=== PATIENT | male | born 1950 | race Caucasian/White ===

== ENCOUNTER 2021-05-29 09:15 | Outpatient (CLI) | payer MEDICARE ==
[~2021-05-29] VITALS: Ht 160 cm; Wt 71.7 kg
[2021-05-29 09:35] VITALS: BP 143/83; PULSE 75; TEMP 96.3
[2021-05-29] MEDS ORDERED: BYSTOLIC5 MG PO (10:10)
[2021-05-29] MEDS ORDERED: CELEXA40 MG PO (10:10)
== END 2021-05-29 10:20 | disposition home or self-care (01) ==
LOC: EUO 09:15
DX: R33.9 Retention of urine, unspecified (principal)

== ENCOUNTER → 2021-07-30 | Outpatient (CLI) | payer MEDICARE ==
[~2021-07-30] MED LIST: BYSTOLIC5 MG PO; CELEXA40 MG PO
== END ==
LOC: COL.RAD 07:27
DX: I71.4 Abdominal aortic aneurysm, without rupture (principal); R31.0 Gross hematuria
CPT/HCPCS: Q9967

== ENCOUNTER 2021-08-14 10:08 | Day surgery (SDC) | payer MEDICARE ==
[2021-08-14] VITALS (7 sets, daily range): BP systolic 128–138; BP diastolic 62–93; PULSE 65–79; TEMP 97.4–97.8
[~2021-08-14] VITALS: Ht 162.6 cm; Wt 69.6 kg
[2021-08-14] MEDS ORDERED: LIPITOR 10MG10 MG PO (11:26)
[2021-08-14] MEDS ORDERED: FLOMAX 0.40.4 MG/CAP PO (11:27)
[2021-08-14 11:37] LABS: CALCIUM 9.4 mg/dL (8.4-10.2); POTASSIUM 4.6 mmol/L (3.5-4.5)
--- NOTE | 2021-08-14 13:55 | NUR ---
Patient returns to room 5 per cart from PACU accompanied by Geovanna SOLIS and is awake and alert. Temp 97.5 and room air sats 100%. Spouse in room. Denies pain and nausea. States has the urge to void and assisted up to the bathroom. Gait steady with two person assist. Had voided in PACU prior to arrival 100ml. Has been incontinent of moderate amount of urine. Patient has bowel movement and returns to room. Drinking water.
--- NOTE | 2021-08-14 14:10 | NUR ---
Drinking orange juice. States has constant urge to void and keeps urinal in place. IV fluids continue to infuse.
--- NOTE | 2021-08-14 14:25 | NUR ---
Resting and is sipping on water and orange juice.
--- NOTE | 2021-08-14 14:40 | NUR ---
Again up to the bathroom. Voids 50-75ml of pink urine each time.
--- NOTE | 2021-08-14 15:15 | NUR ---
Returns from the bathroom after voiding 50ml's of pink urine. Bladder scan done with 93ml's residual. Dr. Obrien notified and patient maybe discharged with the instructions to force fluids.
--- NOTE | 2021-08-14 15:30 | NUR ---
States he is not wanting to eat when offered snack. Ambulates back and forth to the bathroom.
--- NOTE | 2021-08-14 16:05 | NUR ---
Dismissal instructions given and voices understanding of these. Dresses self.
--- NOTE | 2021-08-14 16:11 | NUR ---
Dismissed to home driven by spouse and taken to the front door per wheelchair and assisted into vehicle with instructions in hand.
== END 2021-08-14 16:11 | disposition home or self-care (01) ==
LOC: SDCO 10:08
PROVIDERS: Nurse Anesthetist, Certified Registered
DX: C67.9 Malignant neoplasm of bladder, unspecified (principal); N32.89 Other specified disorders of bladder; R31.0 Gross hematuria; N40.0 Benign prostatic hyperplasia without lower urinary tract symptoms; I10 Essential (primary) hypertension; E78.5 Hyperlipidemia, unspecified; F17.210 Nicotine dependence, cigarettes, uncomplicated; F41.9 Anxiety disorder, unspecified; Z79.899 Other long term (current) drug therapy
CPT/HCPCS: J0690; J1100; J1885; J2405; J2704; J3010; J7120; Q9967